=== PATIENT | female | born 1965 | race Caucasian/White ===

== ENCOUNTER 2016-10-29 10:25 | Emergency (ER) ==
--- NOTE | 2016-10-29 10:50 | PROVIDER DOCUMENTATION ---
HPI-General Adult - General Chief Complaint: Flu Symptoms Stated Complaint: HADDAD,NAUSEA,ABD PAIN,FEVER Time Seen by Provider: 10/29/16 10:38 Source: patient Allergies/Adverse Reactions: Patient Allergies Allergy/AdvReac Type Severity Reaction Status Date / Time azithromycin AdvReac RASH Verified 10/29/16 10:41 Home Medications: Home Medication List Medication Instructions Recorded Confirmed Last Taken Type Guaifenesin/D-Methorphan Hb/PE 1 each PO Q6-8H PRN PRN #14 tablet 10/29/16 Unknown Rx [Deconex Dmx Tablet] - History of Present Illness -Gen Adult Nature of Presenting Problems: The PT, a [id number], presents to the ED c c/o fever, cough, body aches, and sore throat that started yesterday and has progressively gotten worse. The PT states that her daughter was recently diagnosed with the flu and believes that she has caught the virus as well. Currently presents in NAD. Location of Pain/Injury: reports: generalized Quality of Pain: reports: aching Severity: reports: mild Onset/Duration: reports: 24 hours ago Timing: reports: still present Associated Symptoms: reports: cough, fatigue, muscle aches Similar Symptoms Previously?: No Recently seen or treated by another doctor?: No Review of Systems - Adult - REVIEW OF SYSTEMS - ADULT Constitutional: reports: fever, fatique. denies: chills, night sweats Eyes: reports: no symptoms reported. denies: discharge, dry eyes Ears, Nose, Mouth & Throat: reports: throat pain. denies: ear discharge, ear pain, nose pain, loose teeth Cardiovascular: reports: no symptoms reported. denies: chest pain, edema Respiratory: reports: cough. denies: chronic cough, pleurisy, shortness of breath Gastrointestinal: reports: no symptoms reported. denies: abdominal pain, hematemesis Genitourinary: reports: no symptoms reported. denies: dysuria, discharge Musculoskeletal: reports: muscle aches. denies: bone pain, back pain Integumentary: reports: no symptoms reported. denies: hives, hair loss Neurological: reports: no symptoms reported. denies: ataxia, dizziness/vertigo Psychiatric: reports: no symptoms reported. denies: anxiety, anti-depressant use Endocrine: reports: no symptoms reported Hematologic/Lymphatic: reports: no symptoms reported Allergic/Immunologic: reports: no symptoms reported All Other Systems: Reviewed and Negative Past History - Adult - PAST MEDICAL HISTORY-ADULT Review of Records: reports: Old Records Reviewed, Nursing Assessment Review, Medications Reviewed, Social history reviewed & non-contributory. Major Childhood Illnesses: reports: denies history Cardiovascular: reports: murmur Respiratory: reports: denies history Gastrointestinal: reports: denies history Obstetrical/Gynecological: reports: denies history Genitourinary: reports: denies history Musculoskeletal: reports: denies history Neurological: reports: denies history Endocrine/Immune: reports: anemia Other Conditions: reports: denies history - PRIOR SURGERIES/PROCEDURES Surgical/Procedure History: reports: - IMMUNIZATION STATUS Childhood Immunizations: See Nurse Assessment Flu Vaccine: See Nurse Assessment - FAMILY HISTORY Family History: reviewed, not pertinent Physical Exam-General - PHYSICAL EXAM-ADULT Initial Vital Signs Reviewed: Yes - CONSTITUTIONAL General Appearance: appears well, alert, no apparent distress - EYES Eyes: PERRL/EOMI, pink conjunctivae - HEAD, EARS, NOSE, MOUTH & THROAT HENMT: normocephalic/atraumatic, moist mucous membranes, normal ENT inspection. negative: pharyngeal erythema, TM abnormal, TM obscurred by cerumen - NECK Neck: non-tender, full range of motion, supple, normal inspection. negative: limited range of motion, lymphadenopathy, meningismus - RESPIRATORY Respiratory: chest non-tender, lungs clear, normal breath sounds, no pleuratic chest pain, no respiratory distress, no accessory muscle use. negative: respiratory distress, decreased breath sounds, accessory muscle use, crackles, rales, rhonchi, stridor, wheezing - CARDIOVASCULAR Cardiovascular: normal peripheral pulses, regular rate, rhythm, no edema, no gallop, no JVD, systolic murmur (present since ) - GASTROINTESTINAL (ABDOMEN) Abdominal Exam: normal bowel sounds, non tender, soft. negative: no organomegaly, no pulsatile mass, abdominal bruit, abnormal bowel sounds, distended, guarding, rigid, rebound, tenderness, McBurney's point tenderness, Castillo's sign - MUSCULOSKELETAL Back Exam: normal inspection, no CVA tenderness, no vertebral tenderness. negative: muscle spasm, vertebral tenderness Extremity: normal range of motion, non-tender, normal gait, normal inspection - SKIN Integumentary: normal color, normal turgor, warm/dry - NEUROLOGIC Neurologic: grossly normal, no motor/sensory deficits. negative: facial droop, focal weakness, motor weakness, sensory deficit Progress - PLAN OF CARE/RESULTS Progress/Plan/Lab Results: Orders Category Date Time Status Flu Swab [INFLUENZA SCREEN A/B] Stat Lab 10/29/16 10:32 Completed Vital Signs Temp Pulse Resp BP Pulse Ox 10/29/16 10:31 98.5 F 102 H 20 142/82 100 azithromycin Adverse Reaction (Verified 10/29/16 10:41) RASH No Home Medications 10/29/16 Departure - Departure Time of Disposition Order: 11:26 DIAGNOSIS: Influenza-like illness Disposition: HOME 01 Certified Medical Emergency: Urgent Condition: Good Additional Instructions: Take medication as prescribed. Alternate tylenol and motrin. Rest and stay well hydrated. Follow up with your primary care provider. ED Follow Up Instructions: You have been treated by a care provider in the Emergency Department. These instructions are being provided to you so you can have an understanding of how to care for yourself upon discharge. Upon discharge from the Emergency Department, you are responsible for making arrangements for follow-up care by a physician of your choice. Take all prescribed medications as directed. Return to the Emergency Department immediately for any new or worsening symptoms. You may call the Physician Referral phone number at [phone] to obtain a list of Physicians who are taking new patients. Prescriptions: Guaifenesin/D-Methorphan Hb/PE [Deconex Dmx Tablet] 1 each PO Q6-8H PRN PRN #14 tablet PRN Reason: Cough and congestion Attestation - Physician/ AGUILA Attestation Patient care was provided by Advanced Practice Provider:: Yes Advanced Practice Provider:: Felix Ubrina Advanced Practice Provider documentation review:: The Mid-level provider documentation, treatment plan and medical decision making was reviewed by the physician who agrees with all treatment and medical decision making by the MLP.
[2016-10-29 11:59] VITALS: BP 129/72
== END 2016-10-29 11:57 | disposition home or self-care (01) ==
LOC: ED 10:25
DX: J11.1 Influenza due to unidentified influenza virus with other respiratory manifestations (principal); R51 Headache; R11.0 Nausea; R10.9 Unspecified abdominal pain; R50.9 Fever, unspecified; R05 Cough; J02.9 Acute pharyngitis, unspecified; R53.83 Other fatigue; M79.1 Myalgia; R01.1 Cardiac murmur, unspecified
CPT/HCPCS: 87804